=== PATIENT | female | born 1995 | race Hispanic/Latino ===

== ENCOUNTER 2016-10-06 21:28 | Emergency (ER) | payer OTHER ==
[~2016-10-06] VITALS: Ht 160 cm; Wt 72.7 kg
[~2016-10-06 21:28] MED LIST: Benzocaine TOPICAL; Docusate Sodium PO; Hydrocodone/Acetaminophen PO; Ibuprofen PO; TUCPAD TOPICAL
[2016-10-06 21:35] VITALS: BP 121/70; PULSE 90; RESP 18; O2SAT 98
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
[2016-10-06 22:58] LABS: BASOPHILS % (AUTO) 0.2 % (0-3); EOSINOPHILS % (AUTO) 0.9 % (0-5); Mean Corpuscular Volume 86.7 fL (81-100); NEUTROPHILS % (AUTO) 72.2 % (40-74); Platelet Count 251 bil/L (150-400)
[2016-10-06 23:36] LABS: Lipase 39 U/L (13-60)
[2016-10-06] MEDS ORDERED: _HYDROcodone/APAP 5-325 mg Tablet PO PRN (23:45)
[2016-10-07] MEDS ORDERED: Sodium Chloride LOK Flush 10 mL Syringe IVFLUSH SCH (00:30)
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
== END 2016-10-07 01:13 | disposition home or self-care (01) ==
LOC: SED 21:28
DX: S30.1XXA Contusion of abdominal wall, initial encounter (principal); T07 Unspecified multiple injuries; R07.9 Chest pain, unspecified; Y04.0XXA Assault by unarmed brawl or fight, initial encounter; Y93.9 Activity, unspecified; Y92.9 Unspecified place or not applicable; Y99.8 Other external cause status; F43.10 Post-traumatic stress disorder, unspecified; Z79.891 Long term (current) use of opiate analgesic
CPT/HCPCS: 36415; 71101; 74177; 80053; 83690; 84703; 85025; 99284; Q9967